=== PATIENT | female | born 1965 | race Caucasian/White ===

== ENCOUNTER 2017-06-30 17:51 | Emergency (ER) | payer MEDICAID ==
[~2017-06-30] VITALS: Ht 154.9 cm; Wt 47.4 kg
[~2017-06-30 17:51] MED LIST: ACET500T71 PO; ALPR1TAB6 PO; CARI250T PO; DICY20TA29 PO; DIVA250T14 PO; GABA300C PO; HYDR473S47 PO; OMEP-110 PO; ONDA4TAB7 PO; OXYC-302 PO
[2017-06-30 18:28] LABS: HEMATOCRIT 36.6 % (34.6-47.8); HEMOGLOBIN 11.6 g/dL (11.7-16.4); WHITE BLOOD COUNT 4.5 x10^3/uL (3.4-10)
[2017-06-30] MEDS ORDERED: ONDANSETRON 2MG/ML, 2ML IVPush ONE ×2 (18:30→20:30)
[2017-06-30] MEDS ORDERED: SODIUM CHLORIDE FLUSH 10ML SYR IVF ONE (18:30)
[2017-06-30] MEDS ORDERED: SODIUM CHLORIDE 0.9% 1,000ML IVBOLUS ONE (18:30)
[2017-06-30 18:38] LABS: ASPARTATE AMINO TRANSFERASE 34 U/L (15-37); BLOOD UREA NITROGEN 11 mg/dL (7-18)
[2017-06-30] MEDS ORDERED: ONDANSETRON 2MG/ML, 2ML ONE (20:19)
[2017-06-30] MEDS ORDERED: HYDROmorphone 1 MG/ML, 1ML ONE ×2 (20:19→20:59)
[2017-06-30] MEDS: HYDROmorphone 1 MG/ML, 1ML IVPush PRN ×2 (20:27→21:00)
[2017-06-30] MEDS ORDERED: OMNIPAQUE 350 MG/ML, 100ML BOTTLE ONE (20:43)
[2017-06-30 21:04] VITALS: BP 137/65
[2017-06-30] MEDS ORDERED: PROMETHAZINE 25 MG/ML, 1ML ONE (21:36)
[2017-06-30] MEDS ORDERED: PROMETHAZINE 25 MG/ML, 1ML IM STA (21:37)
== END 2017-06-30 22:17 | disposition home or self-care (01) ==
LOC: ED 22:11
DX: R10.84 Generalized abdominal pain (principal); R11.2 Nausea with vomiting, unspecified; J44.9 Chronic obstructive pulmonary disease, unspecified; F17.210 Nicotine dependence, cigarettes, uncomplicated; Z90.710 Acquired absence of both cervix and uterus; Z90.49 Acquired absence of other specified parts of digestive tract
CPT/HCPCS: 36415; 74020; 74177; 80053; 81003; 83690; 85025; 96361; 96372; 96374; 96375; 96376; 99285; J1170; J2405; J2550; J7030; Q9967